=== PATIENT | female | born 1940 | race Caucasian/White ===

== ENCOUNTER → 2016-06-28 | Outpatient (CLI) | payer OTHER ==
[~2016-06-28] MED LIST: ACT15; ASPI325T39 PO; CALC-51 PO; CEPH500C; CEPH500C PO; CEPH500C2 PO; GLC500 PO; HYDR-5688 PO; INSU70IN2; INSU70IN2 SC; LISI-461 PO; LSN25; METF1000 PO; MULT-506 PO; OMEG10007 PO; SIMV20TA2 PO
--- NOTE | 2016-06-28 14:52 | MAMMOGRAPHY REPORT ---
BILATERAL DIGITAL DIAGNOSTIC MAMMOGRAM TOMOSYNTHESIS WITH CAD AND TARGETED RIGHT ULTRASOUND: 06/28/19 17 CLINICAL HISTORY: The patient reports a palpable right breast lump for approximately 2 weeks. TECHNIQUE: Breast tomosynthesis in addition to standard 2D mammography was performed. Current study was also evaluated with a Computer Aided Detection (CAD) system. Bilateral CC and MLO 2-D and kaya synthesis images were obtained. COMPARISON: No prior exams were available for comparison. BREAST COMPOSITION: The tissue of both breasts is heterogeneously dense, which may obscure small ma sses. FINDINGS: A triangle marker sears the site of the palpable lump in the right upper inner quadrant. At the site of the palpable lump there is an irregular spiculated mass which measures 3.4 x 2.8 x 2 .6 cm. Additionally, in the right upper outer quadrant there is an irregular mass with obscured mar gins which measures 2.1 x 2.6 x 1.9 cm. The remainder of both breasts demonstrate no suspicious masses, calcifications, or areas of architec tural distortion. Scattered bilateral benign-appearing calcifications are noted. Targeted ultrasound was performed of the area of the palpable lump pointed out by the patient, in th e right breast at 1:00, 7 cm from the nipple. At the site of the palpable lump there is an irregula r hypoechoic solid mass which measures 2.3 x 1.5 x 3.1 cm. This corresponds with the mammographic m ass and is highly suspicious for malignancy. Recommend ultrasound guided core needle biopsy for fur ther evaluation. In the right breast at 11:00, 3 cm from the nipple, there is a lobulated circumscribed mass which me asures 2.5 x 1.0 x 1.9 cm. This is predominantly anechoic and cystic, although it has multiple sept ations and some echogenic material within it centrally which could represent a solid component. The mass is indeterminate and ultrasound guided core needle biopsy is recommended for further evaluatio n. Targeted ultrasound was performed of the right axilla. A small round lymph node is seen within the axilla measuring 5 x 7 mm. No clear echogenic fatty hilum is seen. Additionally, there is a right axillary lymph node which has an undulating peripheral hypoechoic cortex which is slightly irregular although the cortical thickness measures only 2 mm. This lymph node retains an echogenic fatty hil um. The lymph nodes are equivocal and ultrasound-guided core needle biopsy is recommended for furth er evaluation. IMPRESSION: ACR BI-RADS CATEGORY 5: HIGHLY SUGGESTIVE OF MALIGNANCY, TARGETED ULTRASOUND ACR BI-RAD S CATEGORY 5: HIGHLY SUGGESTIVE OF MALIGNANCY 1. Irregular hypoechoic 3.1 cm mass in the right breast at 1:00, which corresponds with the palpabl e lump. The mass is highly suspicious and ultrasound-guided core needle biopsy is recommended for f urther evaluation. 2. Mixed cystic and solid 2.5 cm mass in the right breast at 11:00. The mass is indeterminate and u ltrasound guided core needle biopsy is recommended for further evaluation. 3. Two equivocal right axillary lymph nodes. Recommend ultrasound guided core needle biopsy of one of the lymph nodes for further evaluation. A phone call was made to the physician's office to confirm faxed results were received. The patient has been verbally notified of the results. She is tentatively scheduled the biopsies before leavin g the department. Approximately 10% of breast cancers are not detected with mammography. A negative mammographic repor t should not delay biopsy if a clinically suggestive mass is present. Paula Alvarez M.D. ah/:06/28/2016 10:39:07 Education Intern: Poppy Neff, [facility] letter sent: Abnormal 4/5 BI-RADS Code: ACR BI-RADS Category 5: Highly Suggestive Of Malignancy Ultrasound BI-RADS: ACR BI-RA DS Category 5: Highly Suggestive Of Malignancy
== END | disposition home or self-care (01) ==
LOC: C.MAMM 09:16
PROVIDERS: ATTEND Internal Medicine
DX: N63 Unspecified lump in breast (principal)

== ENCOUNTER → 2016-07-06 | Outpatient (CLI) | payer OTHER ==
--- NOTE | 2016-07-06 09:59 | Discharge Instructions ---
Discharge Instructions Procedure Procedure Date: Jul 06, 2016. Reason for visit: Right Mass X's 3/ Rt Lymph Node. Discharge Discharge Date: Jul 06, 2016. Discharge Diagnosis: status post breast/axillary biopsies Instructions Activity Recommendations: Additional Limitations (see below) Return to School/Work: no limitations Recommended Home Diet: No Limitations Provider Instructions: ACTIVITY RECOMMENDATIONS: * No lifting, pushing, pulling or exercising the affected side for three days. RETURN TO SCHOOL/WORK: * You may return to work/school after the procedure, but do not perform any strenuous activities for 24 to 48 hours. MEDICATIONS: * Tylenol (two 325 mg) every four to six hours if needed for mild pain (if not allergic to Tylenol). DIET: * Resume previous diet. SPECIAL CARE INSTRUCTIONS: * Keep biopsy site dry for 24 hours. May shower after 24 hours, but do not soak (bathe) incision. * May remove Tegaderm (plastic patch) tomorrow AFTER showering. * Leave the steri-strips on for one week. Allow the steri-strips to fall off by themselves. If not off after one week, you may remove them. You may place a Bandaid crosswise over the strips, if desired. * Apply ice 10 minutes on and 10 minutes off as needed. * Wear a bra at bedtime to sleep more comfortably for 2-3 days. * Your referring physician should have the results after approximately 5 to 7 business days. * Call for unusual bleeding, fever, drainage, etc or if you have any questions call during normal business hours or after hours call Dr Alvarez, . FOLLOW UP VISIT: Follow-up with Referring Physician as scheduled. Allergies Coded Allergies: No Known Allergies (Verified Allergy, Unknown, 11/02/05) Tameka Osman Recommendations: Call your doctor if: * Temperature above 101 degrees * Pain not relieved by pain medicine ordered * There is increased drainage or redness from any incision * You have any unanswered questions or concerns. Your Doctors Instructions noted above were prepared by provider Paula Alvarez. Patient Signature Section: Patient Instructions Signature Page Inna Yunior Patient (or Guardian) Signature/Date: I have read and understand the instructions given to me by my caregivers. Caregiver/RN/Doctor Signature/Date: The above-named patient and/or guardian has received patient instructions on this date. + Original Patient Signature Page (only) stays with chart. Please make copy for patient.
--- NOTE | 2016-07-06 12:52 | MAMMOGRAPHY REPORT ---
ULTRASOUND GUIDED BIOPSY RIGHT BREAST: 07/06/2016 CLINICAL HISTORY: Right 1:00 breast mass. PATIENT CONSENT: The procedure, risks and benefits were discussed with the patient and informed writ ten consent was obtained. A timeout was performed immediately prior to the procedure. PROCEDURE DESCRIPTION: With ultrasound guidance, aseptic technique, and lidocaine as the local anest hetic (1% lidocaine to anesthetize the skin and 1% lidocaine with epinephrine to anesthetize the is[place] per tissues), the mass of concern in the right 1:00 breast (labeled mass A) was sampled 4 times with a 14-gauge Achieve biopsy needle. Immediately thereafter, with ultrasound guidance, aseptic techni que, and lidocaine as the local anesthetic, a metallic localizer clip (ribbon-shaped) was placed brandt trally in the mass. Direct pressure was applied to the site immediately post procedure and hemostas is was achieved. Postprocedure unilateral mammograms were performed to confirm placement of the cli p in the expected location of the breast mass. The patient tolerated the procedure without complica tion. She was given wound care instructions. The specimens were sent to pathology for analysis. COMPARISON: Comparison is made to exams dated: 06/28/2016 ultrasound and 06/28/2016 mammogram - [facility]. IMPRESSION: ULTRASOUND GUIDED BIOPSY Ultrasound-guided core needle biopsy of the right 1:00 breast mass (labeled mass A), with clip place ment. The patient will receive pathology results from her referring physician. Paula Alvarez M.D. ah/:07/06/2016 10:14:02 Attending Technologist: Paula Alvarez MD, [facility] Chuck Tender: Poppy HOU(Nakia)(M), [facility]
--- NOTE | 2016-07-06 12:52 | MAMMOGRAPHY REPORT ---
ULTRASOUND GUIDED BIOPSY RIGHT BREAST: 07/06/2016 CLINICAL HISTORY: Right 11:00 breast mass. PATIENT CONSENT: The procedure, risks and benefits were discussed with the patient and informed writ ten consent was obtained. A timeout was performed immediately prior to the procedure. PROCEDURE DESCRIPTION: With ultrasound guidance, aseptic technique, and lidocaine as the local anest hetic (1% lidocaine to anesthetize the skin and 1% lidocaine with epinephrine to anesthetize the is[place] per tissues), the mass of concern in the right 11:00 breast (labeled mass B) was sampled 4 times wit h a 14-gauge Achieve biopsy needle. Direct pressure was applied to the site immediately post proced ure and hemostasis was achieved. Immediately thereafter, with ultrasound guidance, aseptic techniqu e, and lidocaine as the local anesthetic, a metallic localizer clip (wing-shaped) was placed at the biopsy site. Direct pressure was applied to the site immediately post procedure and hemostasis was achieved. Postprocedure unilateral mammograms were performed to confirm placement of the clip in th e expected location of the breast mass. The patient tolerated the procedure without complication. She was given wound care instructions. The specimens were sent to pathology for analysis. COMPARISON: Comparison is made to exams dated: 06/28/2016 ultrasound and 06/28/2016 mammogram - [facility]. IMPRESSION: ULTRASOUND GUIDED BIOPSY Ultrasound guided core needle biopsy of the right 11:00 breast mass (labeled mass B), with clip plac ement. The patient will receive pathology results from her ordering physician. Paula Alvarez M.D. ah/:07/06/2016 10:25:25 Attending Technologist: Paula Alvarez MD, [facility] Personal Injury Paralegal: Poppy HOU(R)(M), [facility]
--- NOTE | 2016-07-06 12:52 | MAMMOGRAPHY REPORT ---
UNILATERAL RIGHT DIGITAL DIAGNOSTIC MAMMOGRAM: 07/06/2016 CLINICAL HISTORY: Status post ultrasound-guided biopsies of the right breast/axilla. TECHNIQUE: Postprocedural right CC, XCCL, MLO, and MLO views were obtained. COMPARISON: Comparison is made to exams dated: 06/28/2016 mammogram, 06/28/2016 ultrasound, and 017 ultrasound biopsy - [facility]. BREAST COMPOSITION: The tissue of the right breast is heterogeneously dense, which may obscure smal l masses. FINDINGS: A new ribbon-shaped biopsy marker clip is seen at the site of the biopsied mass in the ri ght 1:00 breast. Another biopsy marker clip is seen in the expected location of the biopsied right 11:00 breast mass, which is smaller in size and not well-seen mammographically after biopsy. A ribb on-shaped biopsy marker clip is seen within the biopsied right axillary lymph node, only seen on the MLO view. No significant postbiopsy hematoma is seen. IMPRESSION: POST PROCEDURE IMAGING FOR MARKER PLACEMENT New biopsy marker clips status post ultrasound-guided biopsies of the right 1:00 mass, right 11:00 m ass, and right axillary lymph node. Pathology results are pending. Approximately 10% of breast cancers are not detected with mammography. A negative mammographic repor t should not delay biopsy if a clinically suggestive mass is present. Paula Alvarez M.D. ah/:07/06/2016 10:21:17 Asp Web Developer: Poppy Gambino RT(R)(M), [facility] BI-RADS Code: Post Procedure Imaging For Marker Placement
--- NOTE | 2016-07-06 12:52 | MAMMOGRAPHY REPORT ---
ULTRASOUND GUIDED BIOPSY RIGHT BREAST: 07/06/2016 CLINICAL HISTORY: Equivocal right axillary lymph nodes. PATIENT CONSENT: The procedure, risks and benefits were discussed with the patient and informed writ ten consent was obtained. A timeout was performed immediately prior to the procedure. PROCEDURE DESCRIPTION: Preprocedural ultrasound showed that some of the equivocal right axillary lym ph nodes were too close to adjacent vessels to target them for core needle biopsy. However, one lym ph node was amenable to core needle biopsy. With ultrasound guidance, aseptic technique, and lidoca ine as the local anesthetic (1% lidocaine to anesthetize the skin and 1% lidocaine with epinephrine to anesthetize the deeper tissues), one of the equivocal right axillary lymph nodes (Labeled mass C) was sampled 6 times with an 18-gauge Quick-Core biopsy needle. Immediately thereafter, with ultras ound guidance, aseptic technique, and lidocaine as the local anesthetic, a metallic localizer clip w as placed at the biopsy site. Direct pressure was applied to the site immediately post procedure an d hemostasis was achieved. Postprocedure unilateral mammograms were performed to confirm placement of the clip. The patient tolerated the procedure without complication. She was given wound care ins tructions. The specimens were sent to pathology for analysis. COMPARISON: Comparison is made to exams dated: 06/28/2016 mammogram and 06/28/2016 ultrasound - [facility]. IMPRESSION: ULTRASOUND GUIDED BIOPSY Ultrasound-guided core needle biopsy of one of the equivocal right axillary lymph nodes (labeled mas s C), with clip placement. The patient will receive pathology results from her referring physician. Paula Alvarez M.D. ah/:07/06/2016 10:18:57 Attending Technologist: Paula Alvarez MD, [facility] Desk Clerks Supervisor: Poppy HOU(Nakia)(M), [facility]
== END | disposition home or self-care (01) ==
LOC: C.MAMM 08:42
PROVIDERS: ATTEND Internal Medicine
DX: C50.211 Malignant neoplasm of upper-inner quadrant of right female breast (principal); D05.11 Intraductal carcinoma in situ of right breast; Z17.0 Estrogen receptor positive status [ER+]

== ENCOUNTER → 2016-08-08 | Outpatient (CLI) | payer OTHER ==
[~2016-08-08] MED LIST changes: -ACT15; -CEPH500C; -INSU70IN2; -LSN25
--- NOTE | 2016-08-08 13:21 | DIAGNOSTIC IMAGING REPORT ---
PET/CT HISTORY: Vascular is normal BREAST CANCER TECHNIQUE: PET/CT was performed from the base of the skull through the pelvis following the intravenous administration of 15.2 mCi of F18-FDG. Non-contrast CT imaging was performed over the same range without breath-hold for attenuation correction of PET images and anatomic correlation, but not for primary interpretation as it is not of standard diagnostic quality. CT DOSE: COMPARISON: None. FINDINGS: HEAD AND NECK: There is no FDG-avid disease or significant lymphadenopathy in the imaged portions of the head and the neck. CHEST: Nodular focus 1:00 right breast showing considerable increase in metabolic activity. SUV characteristics extend to 4. This is a maximum dimension 2.5 cm and is presumably neoplastic. Unremarkable activity characteristics of the remainder of the chest. Physiologic activity within the myocardium ABDOMEN/PELVIS: Below the diaphragm, tracer is distributed physiologically in the gastrointestinal and genitourinary tracts. There is no significant lymphadenopathy and no FDG-avid disease. MUSCULOSKELETAL: There is no FDG-avid or destructive bone lesion. IMPRESSION: 1. 2.5 cm nodular focus of 1:00 right breast showing intense increase in metabolic activity. 2. This presumably is neoplastic. 3. The scan is otherwise negative Electronically signed by: Joe Milan M.D. 08/08/2016 1:19 PM Dictated Date/Time: 08/08/2016 1:13 PM
== END | disposition home or self-care (01) ==
LOC: C.PET 09:22
PROVIDERS: ATTEND Internal Medicine Hematology & Oncology
DX: C50.911 Malignant neoplasm of unspecified site of right female breast (principal)

== ENCOUNTER 2016-08-20 07:52 | Inpatient (IN) | payer OTHER ==
[2016-08-01 11:07] VITALS: BMI 29.0
--- NOTE | 2016-08-01 11:39 | PAT Medication Instructions ---
Service Date Aug 01, 2016. Current Home Medication List Aspirin (Aspirin Ec), 650 MG PO PRN Fish Oil ([place]-3), 1 CAP PO QAM Insulin Human Isophan/Regular (Novolin 70/30), 20-35 UNITS SC BID Lisinopril (Zestril), 10 MG PO QAM Metformin HCL (Glucophage *), 1,000 MG PO BID Multivitamin (Multivitamin), 1 TAB PO QAM Simvastatin (Zocor), 20 MG PO HS [Calcium], 1 TAB PO QAM Medication Instructions For Your Scheduled Surgery Aspirin (Aspirin Ec), 650 MG PO PRN (try to avoid one week prior to surgery) - Hold the following medications 2 weeks prior to surgery: Fish Oil ([place]-3), 1 CAP PO QAM - Hold the following medications 48 hours prior to surgery: Metformin HCL (Glucophage *), 1,000 MG PO BID - Hold the following medications the morning of surgery: Calcium 1 TAB PO QAM Multivitamin (Multivitamin), 1 TAB PO QAM Lisinopril (Zestril), 10 MG PO QAM - Take the following medications as scheduled the night before surgery: Simvastatin (Zocor), 20 MG PO HS Insulin Human Isophan/Regular (Novolin 70/30), 20-35 UNITS SC BID - For Insulin Dependent Diabetic patients: Test blood sugar A.M. of surgery. - If blood sugar is greater 150, take half of your Novolin 70/30 dose - If blood sugar is less 150, do not take any: Novolin 70/30 If you have any questions please call us at [phone] or [phone] ( Anjelica) or [phone]
[2016-08-01 12:32] LABS: BASO % 0.5 %; BASO ABS # 0.03 K/uL (0-0.2); COMPLETE YES; EOS % 6.2 %; HEMATOCRIT 37.8 % (37-47); IG% 0.2 %; LYMPH % 17.1 %; MEAN CELL VOLUME 92.4 fL (80-100); MEAN CORPUSCULAR HEMOGLOBIN 30.8 pg (25-34); MEAN CORPUSCULAR HGB CONC 33.3 g/dl (32-36); MEAN PLATELET VOLUME 10.3 fL (7.4-10.4); MONO % 9.6 %; NEUT % 66.4 %; PLATELET COUNT 302 K/uL (130-400); RED BLOOD COUNT 4.09 M/uL (4.2-5.4); WHITE BLOOD COUNT 6.44 K/uL (4.8-10.8)
[2016-08-01 12:58] LABS: BUN/CREATININE RATIO 19.5 (10-20); CALCIUM 9.6 mg/dl (8.5-10.1); CREATININE 0.92 mg/dl (0.60-1.20); POTASSIUM 4.4 mmol/L (3.5-5.1)
[2016-08-20] VITALS (7 sets, daily range): BP systolic 120–149; BP diastolic 70–80; PULSE 73–97; TEMP 36.7–38.5; O2SAT 92–96; BMI 29.0
[~2016-08-20] VITALS: Ht 170.2 cm; Wt 84.4 kg
[~2016-08-20 07:52] MED LIST changes: +CEFAZOLIN 2000 MG/60 ML D5W 60 ML IV SCH; -CEPH500C PO; -CEPH500C2 PO; -HYDR-5688 PO; +LACTATED RINGER'S 1000ML IV SCH; -METF1000 PO
[2016-08-20] MEDS ORDERED: FENTANYL CITRATE INJ 50 MCG/1 ML 2 ML VIAL IV PRN ×2 (09:00)
[2016-08-20] MEDS ORDERED: ATROPINE SULFATE 0.1 MG/ML 5ML SYR IV PRN ×2 (09:00)
[2016-08-20] MEDS ORDERED: HYDROmorphone INJ 1 MG/ML SYR IV PRN ×2 (09:00)
[2016-08-20] MEDS ORDERED: MEPERIDINE HCL 25 MG/ML CARP IV PRN ×2 (09:00)
[2016-08-20] MEDS ORDERED: EpHEDrine SULFATE INJ 50 MG/ML AMP IV PRN ×2 (09:00)
[2016-08-20] MEDS ORDERED: LABETALOL HCL IV 5 MG/ML 20ML IV PRN ×2 (09:00)
[2016-08-20] MEDS ORDERED: ONDANSETRON INJ 2 MG/ML 2 ML VIAL IV PRN ×3 (09:00→13:45)
--- NOTE | 2016-08-20 09:10 | DIAGNOSTIC IMAGING REPORT ---
LYMPHOSCINTIGRAPHY CLINICAL HISTORY: Right-sided breast cancer. PROCEDURE: Using standard sterile technique, 4 intradermal periareolar and one deep injection of 0.491 mCi of Lymphoseek was placed in the right breast. The patient tolerated the procedure well. There were no immediate complications. The patient was subsequently transported to the surgical suite. No imaging was obtained at the referring physician's request. IMPRESSION: Injection of 0.491 mCi of Lymphoseek in the right breast. Electronically signed by: Valentin Velázquez M.D. 08/20/2016 9:08 AM Dictated Date/Time: 08/20/2016 9:08 AM
[2016-08-20] MEDS ORDERED: ISOSULFAN BLUE 10 MG/ML VIAL 5 ML ONE (11:33)
[2016-08-20] MEDS ORDERED: BUPIVACAINE 0.5 % 5 MG/1 ML MPF 30ML VIAL ONE (11:34)
[2016-08-20] MEDS ORDERED: FENTANYL CITRATE INJ 50 MCG/1 ML 2 ML VIAL ONE (11:46)
[2016-08-20] MEDS ORDERED: MIDAZOLAM HCL 1 MG/ML 2ML VIAL ONE (11:46)
[2016-08-20] MEDS ORDERED: ONDANSETRON INJ 2 MG/ML 2 ML VIAL ONE (11:50)
[2016-08-20] MEDS ORDERED: PROPOFOL IV EMULSION 10 MG/ML 20 ML VIAL IV ONE (11:50)
[2016-08-20] MEDS ORDERED: LIDOCAINE HCL 2% 2 ML VIAL (20MG/ML) ONE (11:50)
[2016-08-20] MEDS ORDERED: ROCURONIUM BROMIDE 10 MG/ML 5 ML VIAL ONE (11:50)
[2016-08-20] MEDS ORDERED: GLYCOPYRROLATE INJ 0.2 MG/ML VIAL ONE (11:50)
[2016-08-20] MEDS ORDERED: NEOSTIGMINE METHYLSULFATE 5 MG/5 ML SYR ONE (11:50)
[2016-08-20] MEDS ORDERED: DEXAMETHASONE SOD INJ 4 MG/ML VIAL ONE (11:50)
[2016-08-20] MEDS ORDERED: LACTATED RINGER'S 1000ML 1,000 ML IV SCH (13:41)
--- NOTE | 2016-08-20 13:41 | [facility] Post Operative Brief Note ---
Immediate Operative Summary Operative Date Aug 20, 2016. Pre-Operative Diagnosis Rt breast cancer Post-Operative Diagnosis same Procedure(s) Performed Rt mastectomy with sentinel lymph node bx Surgeon Truong Dependency Counselor Surgeon(s) Edna Brown Estimated Blood Loss 30 cc Findings 1:00 tumor near initial margin- addnl tissue taken Specimens LNs and Rt breast tissue, addnl breast tissue at 1:00 margin Drains #[address] ADRIAN to chest wound Anesthesia gen Complication(s) None Disposition Recovery Room / PACU
[2016-08-20] MEDS ORDERED: MoRPHine SULFATE 2 MG/ML CARP IV PRN (13:45)
[2016-08-20] MEDS ORDERED: PROMETHAZINE HCL INJ 25 MG in SODIUM CHLORIDE 0.9% 50ML 50 ML IV PRN (13:45)
[2016-08-20] MEDS ORDERED: MoRPHine SULFATE 4 MG/ML 1 ML CARP\\VIAL IV PRN (13:45)
[2016-08-20] MEDS ORDERED: HYDROCODONE/ACETAMOPHEN 5/325MG TAB PO PRN ×2 (13:45)
[2016-08-20] MEDS ORDERED: PROMETHAZINE HCL INJ 12.5 MG in SODIUM CHLORIDE 0.9% 50ML 50 ML IV PRN (14:00)
--- NOTE | 2016-08-20 15:48 | Anesthesiology Progress Note ---
Anesthesia Post Op Note Date & Time Aug 20, 2016 at 15:48 Vital Signs Pain Intensity: 0 Vital Signs Past 12 Hours Date Time Temp Pulse Resp B/P Pulse Ox O2 Delivery O2 Flow Rate FiO2 08/20/16 15:10 37.6 71 16 148/72 95 Nasal Cannula 08/20/16 15:00 37.6 58 16 142/72 99 Nasal Cannula 08/20/16 14:50 37.6 79 16 103/92 95 Nasal Cannula 08/20/16 14:40 37.6 76 16 148/73 95 Nasal Cannula 08/20/16 14:30 67 14 143/79 94 Nasal Cannula 08/20/16 14:20 65 14 144/68 100 Mask 10 08/20/16 14:10 62 14 130/69 100 Mask 10 08/20/16 14:03 37.2 59 14 125/66 100 Mask 10 08/20/16 08:28 37.4 97 20 144/72 95 Room Air Notes Mental Status: alert / awake / arousable, participated in evaluation Pt Amnestic to Procedure: Yes Nausea / Vomiting: adequately controlled Pain: adequately controlled Airway Patency, RR, SpO2: stable & adequate BP & HR: stable & adequate Hydration State: stable & adequate Anesthetic Complications: no major complications apparent
--- NOTE | 2016-08-20 16:26 | OPERATIVE REPORT ---
DATE OF OPERATION: 08/20/2016 NAME OF OPERATION: Right mastectomy with sentinel lymph node biopsy. PREOPERATIVE DIAGNOSIS: Right breast cancer. POSTOPERATIVE DIAGNOSIS: Same. STAFF SURGEON: Dr. Truong. EXHIBIT SPECIALIST: HEENA Alvarez ANESTHESIA: General. DESCRIPTION OF PROCEDURE: The patient was brought in the operating room and placed on the operating table in supine position. Her right arm was extended on an arm board. Her right chest and axilla were prepped and draped in usual fashion. Using the Neoprobe, I was able to localize 2 lymph nodes; one was the sentinel lymph node and one was nonsentinel. The sentinel lymph node was sent for frozen section and found to be negative. During the frozen section, we did perform mastectomy by making incision superiorly and inferiorly in an elliptical fashion from the sternum to the axilla carrying dissection down, dissecting the breast tissue away from the subcutaneous tissue down to the chest wall. The breast was then removed from the chest wall with the fascia marking it with a long silk suture laterally. The mass at the 1 o'clock position was somewhat close to the margin; therefore I took additional tissue and did lainey it with methylene blue. This was additional 1 o'clock tissue with new margin methylene blue. At this point, the wounds were irrigated and the axilla closed by reapproximating the subcutaneous tissue using 2-0 plain catgut suture and then the skin using 4-0 nylon suture. The breast was reapproximated after placing a 15 round Alonzo-Cullen drain into the chest wound, securing it using 3-0 nylon suture. The subcutaneous tissue was reapproximated using 3-0 Vicryl suture and then the skin reapproximated lateral using 4-0 nylon suture medially using subcuticular 4-0 Monocryl with Steri-Strips. The patient was transferred to recovery room in stable condition. I attest to the content of the Intraoperative Record and any orders documented therein. Any exceptio ns are noted below.
[2016-08-20] MEDS ORDERED: CEFAZOLIN IV 1,000 MG in DEXTROSE 5% 50ML 50 ML IV SCH (16:30)
[2016-08-20] MEDS: CEFAZOLIN IV 1,000 MG in DEXTROSE 5% 50ML 50 ML IV SCH (17:54)
[2016-08-20] MEDS: SIMVASTATIN 20 MG TAB PO SCH (20:29)
[2016-08-20] MEDS ORDERED: PHARMACY GLYCEMIC MGMT CONSULT PRN (20:41)
--- NOTE | 2016-08-20 21:11 | Pharmacy Progress Note ---
Glycemic Control Intl Consult Date of Service Aug 20, 2016. Scope Glycemic Pharmacist consulted by Dr Mcdermott on 08/20/16 for glycemic control and to write orders per [facility] inpatient glycemic control protocol Objective Weight (Kilograms): 84.400 Accuchecks BSG (last 24hrs): Test 08/20/16 08:48 08/20/16 14:05 08/20/16 16:23 08/20/16 20:36 Bedside Glucose 132 mg/dl (70-90) 115 mg/dl (70-90) 211 mg/dl (70-90) 294 mg/dl (70-90) HbA1c 9.8% Recent Pertinent Medications Outpatient Anti-diabetic Regimen: * Novolin 70/30 20 units-35 units BID (takes a sliding scale with giving 20 units if blood sugar <100 mg/dl; 30 units if blood sugar in the high 100s; 35 units if blood sugar is in the high 200s) * A1c = 9.8 % 05/09/16 Risk Factors for Insulin Resistance: * Steroids: dexamethasone 4 mg IV x 1 * Infection: * Pressors: * IVF: * Recent Surgery: right mastectomy with sentinel node biopsy * Diet: type 2 diet * Mechanical Ventilation: Assessment & Plan ASSESSMENT: * ADA & AACE recommend a goal blood sugar range 140-180 mg/dl for the majority of critically ill & non-critically ill patients. However, more stringent targets may be selected in individual cases. PLAN FOR INPATIENT GLYCEMIC CONTROL: * Holding outpatient oral diabetes medications * Basal insulin with LANTUS 15 units SQ BID * Correctional Insulin with NOVOLOG per scale ACHS * Goal Range: Low 120 mg/dL - High 160 mg/dL * Correction Factor: 30 mg/dL/unit * Nutritional / Prandial insulin per carb ratio of 1 unit per 10 grams CHO consumed please note I spoke with the patient on 08/20/2016 and she is open to trying Lantus Novolog as an outpatient- she told me she would call her physician and ask for it if we felt it was a good idea. She has low blood sugars in the morning and must drink OJ before bed if she feels that she did not receive enough carbohydrates during the day. * Please note that the plan above was derived based on current level of insulin resistance and hospital stress. These recommendations are appropriate for inpatient admission only. Plan of care upon discharge will need to be reassessed to avoid potential outpatient hypo/hyperglycemia. Thank you.
[2016-08-20] MEDS ORDERED: DEXTROSE 50% 50 ML SYR IV PRN (21:15)
[2016-08-20] MEDS ORDERED: GLUCOSE 10 TABS/TUBE PO PRN (21:15)
[2016-08-20] MEDS ORDERED: GLUCOSE 40% GEL 15 GM TUBE PO PRN (21:15)
[2016-08-20] MEDS ORDERED: GLUCAGON FOR INJ 1 MG VIAL SQ PRN (21:15)
[2016-08-20] MEDS: INSULIN ASPART 100 UNITS/ML 3 ML PEN SC SCH (21:38)
[2016-08-20] MEDS ORDERED: INSULIN GLARGINE SOLOSTAR 100 UNITS/ML 3 ML PEN SC SCH (22:00)
[2016-08-21] MEDS: CEFAZOLIN IV 1,000 MG in DEXTROSE 5% 50ML 50 ML IV SCH ×5 (00:07→23:33)
[2016-08-21 04:20] VITALS: BP 126/88; PULSE 75; TEMP 36.7; O2SAT 94
--- NOTE | 2016-08-21 06:23 | Surgery Progress Note ---
Surgery Progress Note Date of Service Aug 21, 2016. Subjective No nausea, No vomiting feeling ok, some mild pain- no evidence of acute bleeding Objective Vital Signs: Date Time Temp Pulse Resp B/P Pulse Ox O2 Delivery O2 Flow Rate FiO2 08/21/16 04:20 36.7 75 16 126/88 94 Room Air 08/21/16 00:10 Room Air 08/20/16 23:50 36.9 83 18 120/70 96 Room Air 08/20/16 22:33 36.8 96 Room Air 08/20/16 18:15 37.0 88 18 146/74 92 Room Air 08/20/16 17:17 38.5 81 16 131/71 93 Room Air 08/20/16 15:45 73 16 130/71 93 Room Air 08/20/16 15:30 96 Room Air 08/20/16 15:30 36.7 74 149/80 96 Room Air 08/20/16 15:30 96 Room Air 08/20/16 15:10 37.6 71 16 148/72 95 Nasal Cannula 08/20/16 15:00 37.6 58 16 142/72 99 Nasal Cannula 08/20/16 14:50 37.6 79 16 103/92 95 Nasal Cannula 08/20/16 14:40 37.6 76 16 148/73 95 Nasal Cannula 08/20/16 14:30 67 14 143/79 94 Nasal Cannula 08/20/16 14:20 65 14 144/68 100 Mask 10 08/20/16 14:10 62 14 130/69 100 Mask 10 08/20/16 14:03 37.2 59 14 125/66 100 Mask 10 08/20/16 08:28 37.4 97 20 144/72 95 Room Air General Appearance: no apparent distress Respiratory/Chest: no respiratory distress Incision(s): dry (minimal drainage), intact Laboratory Results: Results Past 24 Hours Test 08/20/16 08:48 08/20/16 14:05 08/20/16 16:23 08/20/16 20:36 Range/Units Bedside Glucose 132 115 211 294 70-90 mg/dl Assessment & Plan 08/21/16- s/p Rt mastectomy with sentinel LN bx- negative on frozen section leave drain, decrease IV fluids- cont IV atbx- probable d/c tomorrow
[2016-08-21 07:39] VITALS: BP 127/72; PULSE 77; TEMP 36.8; O2SAT 95
--- NOTE | 2016-08-21 07:56 | Anesthesiology Progress Note ---
Anesthesia Post Op Note Date & Time Aug 21, 2016 at 07:56 Vital Signs Pain Intensity: 0.0 Vital Signs Past 12 Hours Date Time Temp Pulse Resp B/P Pulse Ox O2 Delivery O2 Flow Rate FiO2 08/21/16 07:39 36.8 77 16 127/72 95 Room Air 08/21/16 04:20 36.7 75 16 126/88 94 Room Air 08/21/16 00:10 Room Air 08/20/16 23:50 36.9 83 18 120/70 96 Room Air 08/20/16 22:33 36.8 96 Room Air Notes Mental Status: alert / awake / arousable, participated in evaluation Pt Amnestic to Procedure: Yes Nausea / Vomiting: adequately controlled Pain: adequately controlled Airway Patency, RR, SpO2: stable & adequate BP & HR: stable & adequate Hydration State: stable & adequate Anesthetic Complications: no major complications apparent
[2016-08-21] MEDS ORDERED: INSULIN GLARGINE SOLOSTAR 100 UNITS/ML 3 ML PEN SC ONE (08:45)
--- NOTE | 2016-08-21 08:57 | Pharmacy Progress Note ---
Glycemic Control: Progress Nt Date of Service Aug 21, 2016. Scope Glycemic Pharmacist consulted by Dr Mcdermott on 08/20/16 for glycemic control and to write orders per [facility] inpatient glycemic control protocol. Objective Accuchecks BSG (last 24hrs): Test 08/20/16 08:48 08/20/16 14:05 08/20/16 16:23 08/20/16 20:36 Bedside Glucose 132 mg/dl (70-90) 115 mg/dl (70-90) 211 mg/dl (70-90) 294 mg/dl (70-90) Test 08/21/16 07:55 Bedside Glucose 315 mg/dl (70-90) HbA1c: Item Value Date Time Hemoglobin A1c 9.8 % H 05/09/16 0800 Estimated Average Glucose 235 mg/dl 05/09/16 0800 Recent Pertinent Medications Outpatient Anti-diabetic Regimen: * Novolin 70/30 20 units-35 units BID (takes a sliding scale with giving 20 units if blood sugar <100 mg/dl; 30 units if blood sugar in the high 100s; 35 units if blood sugar is in the high 200s) * A1c = 9.8 % 05/09/16 Risk Factors for Insulin Resistance: * Steroids: dexamethasone 4 mg IV x 1 intraop * Infection: ancef IV continued post-op * Recent Surgery: s/p right mastectomy * Diet: type 2 diet Assessment & Plan ASSESSMENT: * 76 yo diabetic F admitted s/p right mastectomy * Per A1c from May 2016, patient is uncontrolled as outpatient; currently on Novolin 70/30 + metformin PO * On admission, pharmacist spoke with patient regarding her home regimen- she is willing to try basal/bolus as outpatient and sites low BSGs in the morning- additionally she drinks OJ at night if she feels she did not receive enough carbs during the day * Recommend case management and CDE * Pt received intraop IV dexamethasone X 1; this, in conjunction with her baseline insulin resistance, has caused BSGs to climb >300 mg/dL this AM * Last night she was converted to wt based basal/bolus regimen * Will overall tighten regimen today- expect needs to decrease over the next 48 hours as effects of dexamethasone dissipate * ADA & AACE recommend a goal blood sugar range 140-180 mg/dl for the majority of critically ill & non-critically ill patients. However, more stringent targets may be selected in individual cases. Due to underlying insulin resistance- tighten goal range to 110-150 mg/dL. PLAN FOR INPATIENT GLYCEMIC CONTROL: * Hold outpatient metformin- OK to restart tomorrow with breakfast at home dose * Increase Basal insulin with LANTUS 20 units SQ BID * Tighten Correctional Insulin with NOVOLOG per scale ACHS or Q6hrs while NPO * Goal Range: Low 110 mg/dL - High 150 mg/dL * Correction Factor: 20 mg/dL/unit * Nutritional / Prandial insulin per carb ratio of 1 unit per 7 grams CHO consumed Looking ahead to discharge: * Unsure if cost is issue for patient- recommend case management evaluation * Recommend CDE to see patient * She seems motivated to have better BSGs * Due to her morning lows and having to drink additional juice at night- 70/30 is likely not the best option for her * Recommend basal/bolus regimen as long as patient remains willing and cost is not an issue * Lantus 15-20 units BID * Possibly Novolog 10 units TIDM? -need to reassess tomorrow after seeing how patient's BSGs respond * Follow up with outpatient PCP soon after discharge to facilitate changes to regimen * Continue Metformin * Please note that the plan above was derived based on current level of insulin resistance and hospital stress. These recommendations are appropriate for inpatient admission only. Plan of care upon discharge will need to be reassessed to avoid potential outpatient hypo/hyperglycemia. Thank you.
[2016-08-21] MEDS ORDERED: INSULIN HUMAN 70% NPH/30% REGULAR SC SCH (09:00)
[2016-08-21] MEDS ORDERED: INSULIN GLARGINE SOLOSTAR 100 UNITS/ML 3 ML PEN SC SCH ×4 (09:00→21:00)
[2016-08-21] MEDS: LISINOPRIL 10 MG TAB PO SCH (09:04)
[2016-08-21] MEDS: INSULIN ASPART 100 UNITS/ML 3 ML PEN SC SCH ×4 (09:15→22:06)
[2016-08-21] MEDS ORDERED: METFORMIN HCL 500 MG TAB PO SCH ×2 (10:00→21:00)
[2016-08-21 11:30] VITALS: BP 128/74; PULSE 79; TEMP 36.7; O2SAT 93
--- NOTE | 2016-08-21 13:07 | Medical Consult ---
Consultation Date of Consultation: Aug 21, 2016. Attending Physician: Neel Truong M.D. Reason for Consultation: Medical management History of Present Illness This patient is a 76-year-old female that underwent a right mastectomy with lymph node biopsy on 08/20. We were asked to see the patient for medical management. The patient currently has no complaints. She denies any pain whatsoever. She denies any shortness of breath or heart palpitations. No dizziness. She reports eating and drinking normally. She is tolerating her diet. She has not yet passed gas, however she thinks that she will have a bowel movement today. The patient has a history of type 2 diabetes. Her blood sugars have been stable at home in the low 100s. Her last blood sugar checked in-house was elevated in the 300s. The patient has not taken her metformin for the last 2 days. Past Medical/Surgical History Diabetes Hyperlipidemia Hypertension Status post knee replacement Family History History of uterine cancer-mother Social History Smoking Status: Never Smoker Alcohol Use: none Marital Status: Allergies Coded Allergies: No Known Allergies (Verified , 08/20/16) Current Inpatient Medications Current Inpatient Medications Medications (Trade) Dose Ordered Sig/Иван Route Start Time Stop Time Status Last Admin Dose Admin Lisinopril (Zestril Tab) 10 mg QAM PO 08/21/16 09:00 09/20/16 08:59 08/21/16 09:04 10 MG Simvastatin (Zocor Tab) 20 mg HS PO 08/20/16 21:00 09/19/16 20:59 08/20/16 20:29 20 MG Acetaminophen/ Hydrocodone Bitart ([place] 5/325 Tab) 1 tab Q4 PRN PO 08/20/16 13:45 09/03/16 13:44 Acetaminophen/ Hydrocodone Bitart ([place] 5/325 Tab) 2 tab Q4 PRN PO 08/20/16 13:45 09/03/16 13:44 Morphine Sulfate (MoRPHine SULFATE INJ) 2 mg Q4H PRN IV 08/20/16 13:45 09/03/16 13:44 Morphine Sulfate 4 mg 4 mg Q4H PRN IV 08/20/16 13:45 09/03/16 13:44 Promethazine HCl/ Sodium Chloride (Phenergan Inj/ Nss 50ml) 51 ml @ 204 mls/hr Q6H PRN IV 08/20/16 13:45 09/19/16 13:44 Ondansetron HCl 4 mg 4 mg Q6H PRN IV 08/20/16 13:45 09/19/16 13:44 Promethazine HCl 12.5 mg/Sodium Chloride 50.5 ml @ 204 mls/hr Q6H PRN IV 08/20/16 14:00 09/19/16 13:59 Cefazolin Sodium/ Dextrose (Ancef Iv/D5 50ml) 55 ml @ 100 mls/hr Q6H IV 08/20/16 18:00 08/30/16 17:59 08/21/16 05:26 100 MLS/HR Miscellaneous Information (Consult Glycemic Management Pharmacy) 1 ea UD PRN N/A 08/20/16 20:41 09/19/16 20:40 Insulin Aspart (novoLOG ASPART) SLIDING SCALE ACHS SC 08/20/16 21:00 09/19/16 20:59 08/21/16 09:15 13 UNITS Glucose (Glucose 40% Gel) 15-30 GRAMS 15 GRAMS... UD PRN PO 08/20/16 21:15 09/19/16 21:14 Glucose (Glucose Chew Tab) 4-8 Tablets 4 Tabl... UD PRN PO 08/20/16 21:15 09/19/16 21:14 Dextrose (Dextrose 50% 50ML Syringe) 25-50ML OF 50% DW IV FOR... UD PRN IV 08/20/16 21:15 09/19/16 21:14 Glucagon (Glucagon Inj) 1 mg UD PRN SQ 08/20/16 21:15 09/19/16 21:14 Insulin Glargine (Lantus Solostar Pen) 10 unit BID SC 08/21/16 09:00 09/20/16 08:59 UNV Metformin HCl (Glucophage Tab) 1,000 mg BID PO 08/21/16 21:00 09/20/16 20:59 UNV Review of Systems 10 system review performed and negative unless noted in HPI or below Physical Exam Date Time Temp Pulse Resp B/P Pulse Ox O2 Delivery O2 Flow Rate FiO2 08/21/16 11:30 36.7 79 16 128/74 93 Room Air 08/21/16 08:05 Room Air 08/21/16 07:39 36.8 77 16 127/72 95 Room Air 08/21/16 04:20 36.7 75 16 126/88 94 Room Air 08/21/16 00:10 Room Air 08/20/16 23:50 36.9 83 18 120/70 96 Room Air 08/20/16 22:33 36.8 96 Room Air 08/20/16 18:15 37.0 88 18 146/74 92 Room Air 08/20/16 17:17 38.5 81 16 131/71 93 Room Air 08/20/16 15:45 73 16 130/71 93 Room Air 08/20/16 15:30 96 Room Air 08/20/16 15:30 36.7 74 149/80 96 Room Air 08/20/16 15:30 96 Room Air 08/20/16 15:10 37.6 71 16 148/72 95 Nasal Cannula 08/20/16 15:00 37.6 58 16 142/72 99 Nasal Cannula 08/20/16 14:50 37.6 79 16 103/92 95 Nasal Cannula 08/20/16 14:40 37.6 76 16 148/73 95 Nasal Cannula 08/20/16 14:30 67 14 143/79 94 Nasal Cannula 08/20/16 14:20 65 14 144/68 100 Mask 10 08/20/16 14:10 62 14 130/69 100 Mask 10 08/20/16 14:03 37.2 59 14 125/66 100 Mask 10 General Appearance: no apparent distress Head: normocephalic Eyes: EOMI Neck: no JVD Respiratory/Chest: lungs clear Cardiovascular: regular rate, rhythm Abdomen/GI: normal bowel sounds, non tender, soft Extremities/Musculoskelatal: no calf tenderness, no pedal edema Neurologic/Psych: no motor/sensory deficits, oriented x 3 Laboratory Results Test 08/21/16 11:59 Bedside Glucose 312 mg/dl (70-90) Last 24 Hours Test 08/20/16 14:05 08/20/16 16:23 08/20/16 20:36 08/21/16 07:55 Bedside Glucose 115 mg/dl 211 mg/dl 294 mg/dl 315 mg/dl Test 08/21/16 11:59 Bedside Glucose 312 mg/dl Assessment & Plan 76-year-old female status post right mastectomy 08/20 for recent diagnosis of breast CA -pain management, DVT prophylaxis, PT per primary team DM -Continue glipizide ER 10 mg po BID -ISS -Home dose of Novolin 70/30 35 units BID on hold-->nonformulary -Restart home dose of metformin 1000 mg po BID at 2100 hrs. tonight HTN -Continue Lisinopril 10 mg daily -Hydralazine 10 mg IV q 6 hr PRN Hyperlipidemia -Continue Simvastatin 20 mg daily PA Physician Supervision Note: I interviewed and examined the patient. Discussed with Hortencia Carey PAC and agree with findings and plan as documented in the note. Any exceptions or clarifications are listed here: None PT with DM and HTN for perioperative management vitals stable pharmacy adjusting glycemic control, bp acceptable Documented By: Gavin Sifuentes Thank you for this consultation. We will continue to follow. Additional Copies To Karlo Douglas M.D.
[2016-08-21] MEDS ORDERED: HYDR-5688 PO (13:17)
[2016-08-21] MEDS ORDERED: CEPH500C2 PO (13:17)
--- NOTE | 2016-08-21 13:21 | Discharge Instructions ---
Discharge Instructions Date of Service Aug 21, 2016. Admission Reason for Admission: Papillary Ca Right Breast, Right Breast Cancer, Di Discharge Discharge Diagnosis / Problem: Rt breast cancer Discharge Goals Goal(s): Decrease discomfort, Improve function, Improve disease control Activity Recommendations Activity Limitations: as noted below Lifting Limitations: no more than 10 pounds Exercise/Sports Limitations: until after follow-up appointment Shower/Bathe: tomorrow (may shower, no bath until sutures removed) Driving or Machine Use: 1 week SPECIAL CARE INSTRUCTIONS: * Cover incisions and change daily for comfort/drainage. * Empty drain 2-3 times per day and record. * May use ibuprofen for pain as tolerated. * Expect some swelling and bruising. Call your doctor if: * Temperature above 101 degrees * Pain not relieved by pain medicine ordered * There is increased drainage or redness from any incision * You have any unanswered questions or concerns [phone]. FOLLOW UP VISIT: If not already scheduled, please call the office for a follow-up visit. for drain removal and wound check for next week OFFICE PHONE NUMBER: Dr. Truong Office . Current Hospital Diet Patient's current hospital diet: Diabetes Type 2 Diet Discharge Diet Recommended Diet: Diabetes Type 2 Diet Procedures Procedures Performed: Rt mastectomy with sentinel lymph node bx Pending Studies Studies pending at discharge: no Medical Emergencies . Who to Call and When: Medical Emergencies: If at any time you feel your situation is an emergency, please call 911 immediately. . Non-Emergent Contact Non-Emergency issues call your: Primary Care Provider, Surgeon . "Provider Documentation" section prepared by Neel Truong. VTE Core Measure Inpt VTE Proph given/why not?: Unfractionated heparin SQ, SCD's
[2016-08-21 14:42] VITALS: Ht 170.2 cm; Wt 84.4 kg
[2016-08-21 14:59] LABS: PROTHROMBIN TIME (PATIENT) 10.7 SECONDS (9.0-12.0)
[2016-08-21] MEDS ORDERED: INSULIN REGULAR 10 UNITS in SYRINGE 9.9 ML IV SCH (17:15)
[2016-08-21 19:51] VITALS: BP 133/73; PULSE 79; TEMP 36.8; O2SAT 94
[2016-08-21] MEDS: HEPARIN SOD 5000 UNIT/0.5 ML CARP SQ SCH (22:05)
[2016-08-21] MEDS: METFORMIN HCL 500 MG TAB PO SCH (22:07)
[2016-08-21] MEDS: SIMVASTATIN 20 MG TAB PO SCH (22:30)
[2016-08-21 23:50] VITALS: BP 113/66; PULSE 75; TEMP 36.7; O2SAT 94
[2016-08-22] MEDS ORDERED: INSULIN ASPART 100 UNITS/ML 3 ML PEN SC SCH
[2016-08-22] MEDS: INSULIN ASPART 100 UNITS/ML 3 ML PEN SC SCH ×3 (04:00→10:01)
[2016-08-22] MEDS: CEFAZOLIN IV 1,000 MG in DEXTROSE 5% 50ML 50 ML IV SCH (05:37)
--- NOTE | 2016-08-22 07:06 | DISCHARGE SUMMARY ---
PRINCIPAL DIAGNOSIS: Right breast cancer. PROCEDURES: The patient underwent a right mastectomy with sentinel lymph node biopsy. HISTORY OF PRESENT ILLNESS: The patient is a 76-year-old female with biopsy-proven right breast cancer in 2 sites. HOSPITAL COURSE: The patient was brought into the hospital where she underwent a right mastectomy with sentinel lymph node biopsy. Ridge lymph node was negative. She has done well from her surgery and is felt stable for discharge home with a visiting nurse to be seen in the surgical clinic next week. She does have a drain in place.
[2016-08-22 07:08] VITALS: BP_SYST 128; BP_SYST 168; BP_DIAS 72; BP_DIAS 89; PULSE 74; PULSE 85; TEMP 36.5; TEMP 36.6; O2SAT 96
[2016-08-22] MEDS ORDERED: INSULIN GLARGINE SOLOSTAR 100 UNITS/ML 3 ML PEN SC SCH (09:00)
[2016-08-22] MEDS: METFORMIN HCL 500 MG TAB PO SCH (10:04)
[2016-08-22] MEDS: HEPARIN SOD 5000 UNIT/0.5 ML CARP SQ SCH (10:04)
[2016-08-22] MEDS: LISINOPRIL 10 MG TAB PO SCH (10:47)
--- NOTE | 2016-08-22 11:05 | Pharmacy Progress Note ---
Glycemic: Assessment & Plan Date of Service Aug 22, 2016. Assessment & Plan 08/22/16: * Saw patient today to discuss discharge planning re: outpatient insulin regimen. * Patient is very receptive to starting new SQ insulin regimen with basal insulin + prandial insulin in separate components to help minimize BSG fluctuations and lows. Suggested Lantus + Apidra d/t cost. Provided patient with a barrel endshaker adjuster copay card that will make her copay $25/Rx for Lantus + $0 copay for Apidra. * Worked with Patient Navigator and scheduled appointment with PCP (Dr Douglas) for SatAugust 29 at 1:50pm to discuss these changes. * The patient is currently requiring ~ 100 units of insulin per day but expect total daily dose to decrease slightly now that dxm effects should be diminishing. Pt received dxm 4mg IV on 08/20/16 PLAN: * Will discharge patient on previous outpatient regimen of Metformin + Novolin 70/30. * Recommended a larger dose of Novolin 70/30 in the morning and then a smaller dose in the evening to prevent lows prior to bedtime which require her to drink OJ and eat a snack. Recommended Novolin 70/30 35 units in the AM with breakfast and 20 units in the PM with dinner. * Since patient still has Lantus on board, recommended a max dose of Novolin 70/ 30 20 units this evening. Patient will administer 1/2 dose if BSG < 150mg/dl. * Encouraged SMBG BID * Patient to discuss changing to Lantus + Apidra with PCP (Dr Douglas) on
--- NOTE | 2016-08-22 11:51 | Hospitalist Progress Note ---
Hospitalist Progress Note Date of Service Aug 22, 2016. Subjective Pt evaluation today including: conversation w/ patient, physical exam, chart review, lab review, conversation w/ corporate travel consultant, review of inpatient medication list Patient doing well this morning. Continues to deny any pain. Denies any trouble breathing or dizziness. Passing gas. Additional Comments: 6 system review negative. Please see pertinent positives in the history of present illness section. Objective Vital Signs Date Time Temp Pulse Resp B/P Pulse Ox O2 Delivery O2 Flow Rate FiO2 08/22/16 08:30 Room Air 08/22/16 07:08 36.6 74 16 128/72 96 Room Air 08/21/16 23:50 36.7 75 16 113/66 94 Room Air 08/21/16 23:30 Room Air 08/21/16 19:51 36.8 79 17 133/73 94 Room Air 08/21/16 15:50 Room Air Physical Exam General Appearance: no apparent distress Neck: no JVD Respiratory/Chest: lungs clear Cardiovascular: regular rate, rhythm Abdomen: normal bowel sounds, non tender, soft Extremities: non-tender, no pedal edema Neurologic/Psychiatric: no motor/sensory deficits, oriented x 3 Skin: warm/dry Laboratory Results Last 24 Hours Test 08/21/16 11:59 08/21/16 14:42 08/21/16 16:33 08/21/16 20:15 Bedside Glucose 312 mg/dl 367 mg/dl 232 mg/dl Prothrombin Time 10.7 SECONDS Prothromb Time International Ratio 1.0 Test 08/21/16 20:44 08/21/16 23:47 08/22/16 04:25 08/22/16 08:05 Bedside Glucose 207 mg/dl 119 mg/dl 120 mg/dl 212 mg/dl Assessment and Plan 76-year-old female status post right mastectomy 08/20 for recent diagnosis of breast CA -pain management, DVT prophylaxis, PT per primary team -Likely for discharge today DM-BSG stable -Discussed at length with pharmacy. -My recommendation would be to continue the patient's current outpatient regimen as Lantus will likely be more expensive for the patient -Follow up with PCP within one week HTN -Lisinopril 10 mg daily Hyperlipidemia -Continue Simvastatin 20 mg daily Stable for D/C from a medical stand point. The medicine service will sign off. Please contact the [facility] Hospitalist for any further medical concerns.
[2016-08-22 11:53] VITALS: BP 128/72; PULSE 74; TEMP 36.6; O2SAT 96
== END 2016-08-22 12:24 | disposition home health service (06) | DRG 581 ==
LOC: ENRESERVTM → ENRESERVDT → C.ACU 07:52 → C.MSN 13:45 → OBSVTOIN 08-21 06:23
PROVIDERS: ADMIT Surgery; ATTEND Surgery
PROC: 07B50ZX Excision of Right Axillary Lymphatic, Open Approach, Diagnostic (ICD-10-PCS; principal; 2016-08-20 10:15)
PROC: 0HTT0ZZ Resection of Right Breast, Open Approach (ICD-10-PCS; principal; 2016-08-20 10:15)
DX: C50.911 Malignant neoplasm of unspecified site of right female breast (principal); I10 Essential (primary) hypertension; E78.00 Pure hypercholesterolemia, unspecified; E78.5 Hyperlipidemia, unspecified; E11.9 Type 2 diabetes mellitus without complications; M19.90 Unspecified osteoarthritis, unspecified site; Z96.653 Presence of artificial knee joint, bilateral; Z80.41 Family history of malignant neoplasm of ovary; Z80.49 Family history of malignant neoplasm of other genital organs; Z79.82 Long term (current) use of aspirin; Z79.4 Long term (current) use of insulin; Z79.84 Long term (current) use of oral hypoglycemic drugs; Z79.899 Other long term (current) drug therapy

== ENCOUNTER 2016-10-02 08:03 | Emergency (ER) | payer OTHER ==
[~2016-10-02] VITALS: Ht 170.2 cm; Wt 82.3 kg
[~2016-10-02 08:03] MED LIST changes: -CEFAZOLIN 2000 MG/60 ML D5W 60 ML IV SCH; +CEPH500C2 PO; +HYDR-5688 PO; -LACTATED RINGER'S 1000ML IV SCH
[2016-10-02 08:07] VITALS: Ht 170.2 cm; Wt 82.3 kg
[2016-10-02 08:11] VITALS: O2SAT 95
[2016-10-02] MEDS ORDERED: SODIUM CHLORIDE 0.9% 1000ML 1,000 ML IV STA (08:20)
[2016-10-02] MEDS ORDERED: METF1000 PO (08:28)
[2016-10-02] MEDS ORDERED: CALC-51 PO (08:28)
[2016-10-02 08:42] LABS: BASO % 0.2 %; BASO ABS # 0.02 K/uL (0-0.2); COMPLETE YES; EOS % 0.7 %; HEMATOCRIT 37.9 % (37-47); IG% 0.3 %; LYMPH % 7.4 %; LYMPH ABS # 0.83 K/uL (1.2-3.4); MEAN CORPUSCULAR HEMOGLOBIN 29.8 pg (25-34); MEAN CORPUSCULAR HGB CONC 31.4 g/dl (32-36); MEAN PLATELET VOLUME 9.6 fL (7.4-10.4); MONO % 8.6 %; NEUT % 82.8 %; PLATELET COUNT 370 K/uL (130-400); RED BLOOD COUNT 3.99 M/uL (4.2-5.4); WHITE BLOOD COUNT 11.15 K/uL (4.8-10.8)
--- NOTE | 2016-10-02 08:46 | DIAGNOSTIC IMAGING REPORT ---
CT HEAD WITHOUT CONTRAST (CT) CLINICAL HISTORY: Head trauma. Head pain. BREAST CARCINOMA COMPARISON STUDY: No previous studies for comparison. TECHNIQUE: Axial CT of the brain is performed from the vertex to the skull base. IV contrast was not administered for this examination. CT DOSE: 537.48 mGy.cm FINDINGS: No intra or extra-axial mass lesions are visualized. There is no CT evidence of acute cortical infarction. There is no evidence of midline shift. There is no acute hemorrhage. No calvarial fractures are visualized. There are minimal white matter hypodensities likely on a small vessel basis. There is basal ganglial mineralization. There is no evidence of pathologic ventricular dilatation. There is no evidence of acute sinusitis. IMPRESSION: No acute intracranial findings Electronically signed by: Luis Enrique Montesinos M.D. 10/02/2016 8:44 AM Dictated Date/Time: 10/02/2016 8:43 AM
[2016-10-02 08:59] LABS: CALCIUM 9.1 mg/dl (8.5-10.1); CREATININE 0.97 mg/dl (0.60-1.20); POTASSIUM 4.3 mmol/L (3.5-5.1)
[2016-10-02] MEDS ORDERED: XYLOCAINE 1%/SOD BICARB 20 ML VIAL INFIL ONE (09:00)
[2016-10-02 09:03] LABS: CKMB/CK RATIO 1.6 (0-3.0)
[2016-10-02] MEDS ORDERED: CEPH500C PO (10:34)
--- NOTE | 2016-10-02 10:35 | EMERGENCY ROOM VISIT NOTE ---
History Report prepared by Rashad: Tahir Barahona Under the Supervision of: Dr. Trae Soto D.O. First contact with patient: 08:14 Chief Complaint: FALL Stated Complaint: FALL/LACERATION History of Present Illness The patient is a 76 year old female who presents to the Emergency Room with complaints of a sudden mechanical fall that occurred over an hour ago. The patient says that she thinks she fell because her blood sugar was too low. She is not sure about the mechanism of the fall, but she thinks that she lost her balance and tripped. The patient was found lying on the floor by her son The patient struck her upper lip and left elbow on the fall, and has resulting lacerations to those areas. Per the patient's son, the patient was given some orange juice at the house prior to coming here. The patient's blood sugar was 178 here, about 20 minutes after drinking the orange juice. The patient thinks she may have blacked out on the floor, but is not sure. She denies any chest pain, nausea, shortness of breath, fevers, or recent illness. The patient is not on any blood thinners. She says that she has been feeling fine other than the fall. Source of History: patient, family Onset: Over an hour ago Position: other (global - fall) Quality: other (mechanical) Timing: other (sudden) Associated Symptoms: No SOB, No chest pain, No fevers, No nausea Note: Associated symptoms: Lacerations to upper lip and left elbow. Blood sugar was 178 after drinking some orange juice. Denies recent illness. Review of Systems See HPI for pertinent positives & negatives. A total of 10 systems reviewed and were otherwise negative. Past Medical & Surgical Medical Problems: (1) Breast cancer Family History Family history omitted secondary to advanced age. Social History Smoking Status: Never Smoker Marital Status: Housing Status: lives with family Occupation Status: retired Current/Historical Medications Scheduled Aspirin (Aspirin Ec), 650 MG PO PRN Calcium Carbonate-Vitamin D (Calcium), 1 TAB PO QAM Cephalexin Monohydrate (Keflex), 500 MG PO QID Fish Oil ([place]-3), 1 CAP PO QAM Insulin Human Isophan/Regular (Novolin 70/30), 20-35 UNITS SC BID Lisinopril (Zestril), 10 MG PO QAM Metformin Hcl (Glucophage), 1,000 MG PO BID Multivitamin (Multivitamin), 1 TAB PO QAM Simvastatin (Zocor), 20 MG PO HS Allergies Coded Allergies: No Known Allergies (Verified , 10/02/16) Physical Exam Vital Signs Date Time Temp Pulse Resp B/P Pulse Ox O2 Delivery O2 Flow Rate FiO2 10/02/16 10:48 36.7 76 17 166/99 96 10/02/16 10:43 76 17 166/99 96 Room Air 10/02/16 08:48 79 18 137/86 96 Room Air 10/02/16 08:11 95 Room Air 10/02/16 08:10 93 10/02/16 08:07 36.7 89 18 159/77 95 Room Air Physical Exam CONSTITUTIONAL/VITAL SIGNS: Reviewed / noted above. GENERAL: Non-toxic in appearance. INTEGUMENTARY: Warm, dry, and [place]. HEAD: Normocephalic. EYES: without scleral icterus or trauma. ENT/OROPHARYNX: 5 cm laceration to the face above upper lip, small laceration in the mucosa on opposing side of this laceration. LYMPHADENOPATHY/NECK: Is supple without lymphadenopathy or meningismus. RESPIRATORY: Lungs clear and equal. CARDIOVASCULAR: Regular rate and rhythm. GI/ABDOMEN: Soft and nontender. No organomegaly or pulsatile mass. No rebound or guarding. Normal bowel sounds. EXTREMITIES: Very small abrasion/skin tear to left lateral elbow. Full range of motion of left arm without discomfort, no obvious bony injury. BACK: No CVA tenderness. NEUROLOGICAL: Intact without focal deficits. PSYCHIATRIC: normal affect. MUSCULOSKELETAL: Normally developed with good muscle tone. Medical Decision & Procedures ER Provider Diagnostic Interpretation: CT results as stated below per my review and radiologist interpretation: CT HEAD WITHOUT CONTRAST (CT) CLINICAL HISTORY: Head trauma. Head pain. BREAST CARCINOMA COMPARISON STUDY: No previous studies for comparison. TECHNIQUE: Axial CT of the brain is performed from the vertex to the skull base. IV contrast was not administered for this examination. CT DOSE: 537.48 mGy.cm FINDINGS: No intra or extra-axial mass lesions are visualized. There is no CT evidence of acute cortical infarction. There is no evidence of midline shift. There is no acute hemorrhage. No calvarial fractures are visualized. There are minimal white matter hypodensities likely on a small vessel basis. There is basal ganglial mineralization. There is no evidence of pathologic ventricular dilatation. There is no evidence of acute sinusitis. IMPRESSION: No acute intracranial findings Electronically signed by: Luis Enrique Montesinos M.D. 10/02/2016 8:44 AM Dictated Date/Time: 10/02/2016 8:43 AM Laboratory Results 10/02/16 08:30 Red Blood Count 3.99, Mean Corpuscular Volume 95.0, Mean Corpuscular Hemoglobin 29.8, Mean Corpuscular Hemoglobin Concent 31.4, Mean Platelet Volume 9.6, Neutrophils (%) (Auto) 82.8, Lymphocytes (%) (Auto) 7.4, Monocytes (%) (Auto) 8.6, Eosinophils (%) (Auto) 0.7, Basophils (%) (Auto) 0.2, Neutrophils # (Auto) 9.23, Lymphocytes # (Auto) 0.83, Monocytes # (Auto) 0.96, Eosinophils # (Auto) 0.08, Basophils # (Auto) 0.02 10/02/16 08:30 Test 10/02/16 08:12 10/02/16 08:30 Bedside Glucose 171 mg/dl (70-90) White Blood Count 11.15 K/uL (4.8-10.8) Red Blood Count 3.99 M/uL (4.2-5.4) Hemoglobin 11.9 g/dL (12.0-16.0) Hematocrit 37.9 % (37-47) Mean Corpuscular Volume 95.0 fL (80-100) Mean Corpuscular Hemoglobin 29.8 pg (25-34) Mean Corpuscular Hemoglobin Concent 31.4 g/dl (32-36) Platelet Count 370 K/uL (130-400) Mean Platelet Volume 9.6 fL (7.4-10.4) Neutrophils (%) (Auto) 82.8 % Lymphocytes (%) (Auto) 7.4 % Monocytes (%) (Auto) 8.6 % Eosinophils (%) (Auto) 0.7 % Basophils (%) (Auto) 0.2 % Neutrophils # (Auto) 9.23 K/uL (1.4-6.5) Lymphocytes # (Auto) 0.83 K/uL (1.2-3.4) Monocytes # (Auto) 0.96 K/uL (0.11-0.59) Eosinophils # (Auto) 0.08 K/uL (0-0.5) Basophils # (Auto) 0.02 K/uL (0-0.2) RDW Standard Deviation 47.4 fL (36.4-46.3) RDW Coefficient of Variation 13.6 % (11.5-14.5) Immature Granulocyte % (Auto) 0.3 % Immature Granulocyte # (Auto) 0.03 K/uL (0.00-0.02) Anion Gap 10.0 mmol/L (3-11) Est Creatinine Clear Calc Drug Dose 55.3 ml/min Estimated GFR () 66.2 Estimated GFR (Non- 57.1 BUN/Creatinine Ratio 23.0 (10-20) Calcium Level 9.1 mg/dl (8.5-10.1) Total Creatine Kinase 270 U/L (26-192) Creatine Kinase MB 4.4 ng/ml (0.5-3.6) Creatine Kinase MB Ratio 1.6 (0-3.0) Laboratory results as stated above per my review. Medications Administered Medications (Trade) Dose Ordered Sig/Иван Route Start Time Stop Time Status Last Admin Dose Admin Sodium Chloride (Nss 1000ml) 1,000 ml @ 300 mls/hr Q3H20M STAT IV 10/02/16 08:20 10/02/16 11:39 10/02/16 08:38 300 MLS/HR Cephalexin Monohydrate (Keflex Cap) 500 mg NOW ONCE PO 10/02/16 10:45 10/02/16 10:46 DC 10/02/16 10:42 500 MG Procedure Laceration repair: 6 centimeter complex laceration 1% lidocaine was used for local anesthesia. Copious irrigation. Betadine prep. Sterile technique. 3 #6.0 interrupted nylon sutures were placed with good approximation of the wound. One subcutaneous stitch was performed. Patient tolerated procedure well. No complications. Wound was explored to its depth. No tendon, nerve or arterial involvement. ECG Indication: other (fall) Rate (beats per minute): 82 Rhythm: normal sinus Findings: no ectopy, other (no acute injury) ED Course 0817: Previous medical records were reviewed. The patient was evaluated in room A2. A complete history and physical examination was performed. 0820: Ordered NSS 1000 ml @ 300 mls/hr IV. 0900: Ordered Buffered Lidocaine 1% Inj 20 ml INFIL. 1037: On reevaluation, the patient is resting comfortably. I discussed the results and findings with the patient. She verbalized agreement of the treatment plan. She was discharged home. 1045: Ordered Keflex Cap 500 mg PO. Medical Decision Differential includes close head injury, intracranial bleed, facial trauma, cervical spine trauma, chest and thoracic trauma, abdominal and intra-abdominal trauma, spine neurologic trauma, extremity trauma. This is a 76-year-old female who presents to the ED with a chief complaint of a fall. The patient states that she thinks that her blood sugar may have been low causing her to lose her balance and fall. She presents with a laceration above the upper lip. She also has a small abrasion to the left elbow. She denies hitting her head or loss of consciousness. She denies any fevers or recent illness. She denies any chest pains, shortness of breath or abdominal pains. Her vital signs are stable. Exam reveals a 5 cm laceration above the lip. This slightly communicates with the anterior mucosa is a small puncture wound inside the mouth in the same area as well. There is no contamination and minimal bleeding. There is some swelling to the upper lip some ecchymosis. She did not injure the nose. Her jaw moves freely without discomfort and her teeth come together normally. There is no midline tenderness of the neck or back. No chest wall tenderness. No other injuries noted or complained of. CT scan of the brain did not show acute disease. The CBC was unremarkable. BUN is 22. Glucose is 207. The patient had orange juice after the fall. She was told the results the test. Her laceration was sutured. She is felt to be stable for discharge. Impression Primary Impression: Fall Additional Impression: Laceration of face Scribe Attestation The scribe's documentation has been prepared under my direction and personally reviewed by me in its entirety. I confirm that the note above accurately reflects all work, treatment, procedures, and medical decision making performed by me. Departure Information Dispostion Home / Self-Care Prescriptions Cephalexin Monohydrate (Keflex) 500 Mg Cap 500 MG PO QID, #28 CAP Prov: Trae Soto D.O. 10/02/16 Referrals Stella, Karlo,M.D. (PCP) Patient Instructions My [facility] Additional Instructions Take Keflex as prescribed to help prevent infection of the wound. Have sutures removed in 7 days. See your doctor or return here for suture removal. Watch for infection. Return for any concerns. Problem Qualifiers
[2016-10-02] MEDS ORDERED: CEPHALEXIN MONOHYDRATE 250 MG CAP PO ONE (10:45)
[2016-10-02 10:48] VITALS: BP 166/99; PULSE 76; TEMP 36.7; O2SAT 96
== END 2016-10-02 10:48 | disposition home or self-care (01) ==
LOC: EDBD 08:03 → C.EDA 08:04
DX: S01.81XA Laceration without foreign body of other part of head, initial encounter (principal); W01.198A Fall on same level from slipping, tripping and stumbling with subsequent striking against other object, initial encounter; Z85.3 Personal history of malignant neoplasm of breast; Z79.82 Long term (current) use of aspirin; Z79.84 Long term (current) use of oral hypoglycemic drugs

== ENCOUNTER 2016-10-09 06:45 | Emergency (ER) | payer OTHER ==
[~2016-10-09] VITALS: Ht 170.2 cm; Wt 82.2 kg
[~2016-10-09 06:45] MED LIST changes: +CEPH500C PO; -CEPH500C2 PO; -GLC500 PO; -HYDR-5688 PO; +METF1000 PO
[2016-10-09 06:48] VITALS: BP 130/69; PULSE 90; TEMP 36.7; O2SAT 96; Ht 170.2 cm; Wt 82.2 kg
--- NOTE | 2016-10-09 07:01 | EMERGENCY ROOM VISIT NOTE ---
ED Visit Note First contact with patient: 06:54 CHIEF COMPLAINT: Suture removal This patient returns to the ED today for removal of sutures that were placed 7 days ago. There has been no swelling, redness, or drainage from the wound. The patient feels like the laceration is healing well. REVIEW OF SYSTEMS: Head: No headache, injury or neck pain. Skin: No rash, new lesions, or masses. General: No fever or chills, fatigue, loss of appetite , or significant recent weight gain or loss. PMH: The patient is healthy; there is no significant medical or surgical history. SOCIAL HISTORY: Patient lives at home. PHYSICAL EXAM: Vital Signs: Reviewed Nurse's notes. There is a sutured wound on the philtrum (skin between nose and upper lip) with no signs of infection. There is no erythema, swelling, or tenderness. The intraoral laceration is also healing well. EMERGENCY DEPARTMENT COURSE: The sutures were removed without any difficulty and there was no separation of the wound edges. DIAGNOSIS: Healing laceration and suture removal Current/Historical Medications Scheduled Aspirin (Aspirin Ec), 650 MG PO PRN Calcium Carbonate-Vitamin D (Calcium), 1 TAB PO QAM Cephalexin Monohydrate (Keflex), 500 MG PO QID Fish Oil ([place]-3), 1 CAP PO QAM Insulin Human Isophan/Regular (Novolin 70/30), 20-35 UNITS SC BID Lisinopril (Zestril), 10 MG PO QAM Metformin Hcl (Glucophage), 1,000 MG PO BID Multivitamin (Multivitamin), 1 TAB PO QAM Simvastatin (Zocor), 20 MG PO HS Allergies Coded Allergies: No Known Allergies (Verified , 10/09/16) Vital Signs Date Time Temp Pulse Resp B/P Pulse Ox O2 Delivery O2 Flow Rate FiO2 10/09/16 06:48 36.7 90 18 130/69 96 Room Air Departure Information Impression Primary Impression: Encounter for removal of sutures Dispostion Home / Self-Care Condition GOOD Referrals No Doctor, Assigned (PCP) Patient Instructions My [facility] Additional Instructions DISCHARGE INSTRUCTIONS AND TREATMENT: Wash any remaining crusts off of the wound today and resume your normal activities. As we discussed please be careful in the sun, and wear sunscreen. Thank you and have a great day.
== END 2016-10-09 07:05 | disposition home or self-care (01) ==
LOC: C.EDB 06:46 → C.EDA 07:05
DX: S01.21XD Laceration without foreign body of nose, subsequent encounter (principal); Z79.4 Long term (current) use of insulin; Z79.82 Long term (current) use of aspirin; Z79.899 Other long term (current) drug therapy; X58.XXXD Exposure to other specified factors, subsequent encounter

== ENCOUNTER → 2016-11-15 | Outpatient (CLI) | payer OTHER ==
[2016-11-15 12:22] LABS: BASO % 0.7 %; BASO ABS # 0.05 K/uL (0-0.2); COMPLETE YES; EOS % 0.5 %; HEMATOCRIT 35.5 % (37-47); IG% 0.9 %; LYMPH % 13.7 %; LYMPH ABS # 1.03 K/uL (1.2-3.4); MEAN CELL VOLUME 94.7 fL (80-100); MEAN CORPUSCULAR HEMOGLOBIN 29.1 pg (25-34); MEAN CORPUSCULAR HGB CONC 30.7 g/dl (32-36); MEAN PLATELET VOLUME 9.6 fL (7.4-10.4); MONO % 9.8 %; NEUT % 74.4 %; PLATELET COUNT 406 K/uL (130-400); RED BLOOD COUNT 3.75 M/uL (4.2-5.4); WHITE BLOOD COUNT 7.54 K/uL (4.8-10.8)
[2016-11-15 13:06] LABS: ALT/SGPT 20 U/L (12-78); AST/SGOT 17 U/L (15-37); BLOOD UREA NITROGEN 13 mg/dl (7-18); BUN/CREATININE RATIO 14.8 (10-20); CARBON DIOXIDE 25 mmol/L (21-32); CHLORIDE 106 mmol/L (98-107); CHOLESTEROL 183 mg/dl (0-200); CREATININE 0.88 mg/dl (0.60-1.20); GLUCOSE 150 mg/dl (70-99); POTASSIUM 4.2 mmol/L (3.5-5.1); SODIUM 143 mmol/L (136-145); TRIGLYCERIDES 160 mg/dl (0-150); VERY LOW DENSITY LIPOPROT CALC 32 mg/dl
[2016-11-15 13:19] LABS: ALB/GLOB RATIO 0.9 (0.9-2); ALKALINE PHOSPHATASE 97 U/L (45-117); CHOLESTEROL/HDL RATIO 3.8; HDL CHOLESTEROL 48 mg/dl; LDL CHOLESTEROL CALCULATED 103 mg/dl
[2016-11-15 13:21] LABS: ESTIMATED AVERAGE GLUCOSE 206 mg/dl; HA1C FLAG Normal (Normal)
== END | disposition home or self-care (01) ==
LOC: C.LABBFT 07:50
PROVIDERS: ATTEND Internal Medicine
DX: C50.211 Malignant neoplasm of upper-inner quadrant of right female breast (principal); E11.29 Type 2 diabetes mellitus with other diabetic kidney complication

== ENCOUNTER → 2016-11-16 | Outpatient (CLI) | payer OTHER | END | disposition home or self-care (01) | LOC: C.LAB 07:56 | PROVIDERS: ATTEND Internal Medicine | DX: E11.29 Type 2 diabetes mellitus with other diabetic kidney complication (principal) ==